=== PATIENT | male | born 1990 | race African-American/Black ===

== ENCOUNTER 2017-05-28 18:34 | Emergency (ER) | payer SELFPAY | END 2017-05-28 20:06 | disposition home or self-care (01) | LOC: ERS 18:34 | DX: S00.01XA Abrasion of scalp, initial encounter; V49.9XXA Car occupant (driver) (passenger) injured in unspecified traffic accident, initial encounter; S81.811D Laceration without foreign body, right lower leg, subsequent encounter | CPT/HCPCS: 99283 ==

== ENCOUNTER 2018-03-14 22:29 | Emergency (ER) | payer SELFPAY | END 2018-03-14 23:05 | disposition home or self-care (01) | LOC: ERS 22:29 | DX: K64.9 Unspecified hemorrhoids (principal); F17.210 Nicotine dependence, cigarettes, uncomplicated | CPT/HCPCS: 99282 ==

== ENCOUNTER 2018-03-20 18:00 | Emergency (ER) | payer SELFPAY | END 2018-03-20 19:12 | disposition home or self-care (01) | LOC: ERS 18:00 | DX: Z00.00 Encounter for general adult medical examination without abnormal findings (principal); F17.210 Nicotine dependence, cigarettes, uncomplicated | CPT/HCPCS: 99283 ==